=== PATIENT | male | born 1955 | race African-American/Black ===

== ENCOUNTER 2022-10-20 14:04 | Inpatient (IN) ==
[2022-10-20] MEDS ORDERED: ALBUTEROL 2.5 MG/3 ML NEB RESP TX PRN (15:58)
[2022-10-20] MEDS ORDERED: ONDANSETRON 4 MG/2 ML VIAL IV PRN (16:42)
[2022-10-20 16:48] LABS: Basophils % 0.1 % (0.0-0.8); Hematocrit 37.7 VOL% (42.0-52.0); Hemoglobin 11.4 GM/DL (14.0-18.0); Immature Granulocytes % 0.6 %; Immature Granulocytes Absolute 0.05 #; Lymphocytes # 0.9 10*3/uL (1.4-4.0); Lymphocytes % 10.3 % (21.2-54.2); Mean Corpuscular HGB Conc 30.2 GM/DL (32-36); Mean Corpuscular Volume 79.7 FL (87-102); Mean Platelet Volume 12.2 FL (9.6-12.0); Monocytes # 0.3 10*3/uL (0.11-0.8); Monocytes % 3.5 % (1.7-12.7); Neutrophils % 85.5 % (38.7-73.9); Platelet Count 279 T/CUMM (130-400); Red Blood Count 4.73 MC/CUMM (3.8-5.5); Red Cell Distribution Width 17.2 % (9.3-17.3); White Blood Count 8.39 T/CUMM (4-12)
[2022-10-20 17:04] LABS: Alanine Aminotransferase 116 U/L (16-61); Albumin 1.9 G/DL (3.4-5.0); Alkaline Phosphatase 79 U/L (45-117); Aspartate Amino Transferase 66 U/L (0-37); Bilirubin,Total < 0.39 MG/DL (0.20-1.00); Blood Urea Nitrogen 19 MG/DL (7-18); Calcium 8.4 MG/DL (8.5-10.1); Carbon Dioxide 29 MMOL/L (21-32); Chloride 107 MMOL/L (98-107); Glucose 146 MG/DL (74-106); Osmolality,Calculated 285.3 MOS/KG (273-304); Potassium 4.3 MMOL/L (3.5-5.1); Sodium 141 MMOL/L (136-145); Total Protein 6.3 G/DL (6.4-8.2)
[2022-10-20] MEDS: methylPREDNISolone SOD SUC 40 MG/1 ML VIAL IV SCH (18:42)
[2022-10-20] MEDS: PIPERACILLIN/TAZOBACTAM 3,375 MG in SODIUM CHLORIDE 0.9% 100 ML IV SCH (18:43)
[2022-10-20] MEDS: FAMOTIDINE 20 MG/2 ML VIAL IV SCH (18:44)
[2022-10-20] MEDS: INSULIN LISPRO 100 UNIT/ML SUBCUT SCH ×2 (18:57→23:16)
[2022-10-20] MEDS: ALBUTEROL/IPRATROPIUM 3 ML NEB RESP TX SCH (19:21)
[2022-10-20 20:11] LABS: Mucus,Urine Occasional /LPF (Occasional); RBC,Urine <1 /HPF (0-4)
[2022-10-20 20:12] LABS: Bilirubin,Urine Negative (Negative); Blood, Urine Negative (Negative); Glucose,Urine (UA) Negative (Negative); Ketones,Urine Negative (Negative); Nitrite,Urine Negative (Negative); Protein,Urine Negative (Negative); Urine Appearance Clear (Clear); Urine Color Yellow (Yellow); Urine Specific Gravity 1.015 (1.001-1.035); Urine Urobilinogen 0.2 eU/dL (<2.0)
[2022-10-21] MEDS: ALBUTEROL/IPRATROPIUM 3 ML NEB RESP TX SCH ×4 (00:05→18:58)
[2022-10-21] MEDS: PIPERACILLIN/TAZOBACTAM 3,375 MG in SODIUM CHLORIDE 0.9% 100 ML IV SCH ×2 (01:05→11:10)
[2022-10-21 03:33] LABS: Arterial Base Excess iSTAT 5 MMOL/L (-2.5-2.5); Arterial Bicarbonate iSTAT 29.5 MMOL/L (20-26); Arterial O2 Saturation iSTAT 98 % (95-100); Arterial PCO2 iSTAT 41 MM HG (35-48); Arterial PO2 iSTAT 101 MM HG (80-95); Arterial Total CO2 iSTAT 31 MMO/L (23-27); Arterial pH iSTAT 7.469 (7.35-7.45)
[2022-10-21] MEDS: methylPREDNISolone SOD SUC 40 MG/1 ML VIAL IV SCH ×2 (05:24→17:22)
[2022-10-21] MEDS: FAMOTIDINE 20 MG/2 ML VIAL IV SCH ×2 (05:26→17:24)
[2022-10-21] MEDS: INSULIN LISPRO 100 UNIT/ML SUBCUT SCH ×3 (05:30→18:38)
[2022-10-21] MEDS: LEVOTHYROXINE 25 MCG TABLET PO SCH (05:34)
[2022-10-21 06:17] LABS: Albumin 1.9 G/DL (3.4-5.0); Bilirubin,Total 0.4 MG/DL (0.20-1.00); Calcium 8.7 MG/DL (8.5-10.1); Osmolality,Calculated 279.5 MOS/KG (273-304); Total Protein 6.3 G/DL (6.4-8.2)
[2022-10-21 06:25] LABS: Basophils % 0.2 % (0.0-0.8); Eosinophils % 0.1 % (0.00-10.9); Hematocrit 34.5 VOL% (42.0-52.0); Hemoglobin 10.8 GM/DL (14.0-18.0); Immature Granulocytes % 0.3 %; Immature Granulocytes Absolute 0.03 #; Lymphocytes # 1.8 10*3/uL (1.4-4.0); Lymphocytes % 19.6 % (21.2-54.2); Mean Corpuscular HGB Conc 31.3 GM/DL (32-36); Mean Corpuscular Volume 76.7 FL (87-102); Mean Platelet Volume 11.9 FL (9.6-12.0); Monocytes # 0.5 10*3/uL (0.11-0.8); Monocytes % 5.8 % (1.7-12.7); Platelet Count 381 T/CUMM (130-400); White Blood Count 8.98 T/CUMM (4-12)
[2022-10-21] MEDS ORDERED: SODIUM CHLORIDE 0.9% 1,000 ML IV SCH (08:30)
[2022-10-21] MEDS ORDERED: ceFAZolin 1,000 MG VIAL IRRIG ONE (10:00)
[2022-10-21] MEDS: MULTIVITAMIN LIQUID (CENTRUM) 60 ML BOTTLE PO SCH (10:23)
[2022-10-21] MEDS: LORATADINE 10 MG TABLET PO SCH ×2 (10:23→14:35)
[2022-10-21] MEDS: THIAMINE 100 MG TABLET PO SCH (10:23)
[2022-10-21] MEDS ORDERED: HEPARIN/NACL 0.9% 2 UNITS/ML 1,000 UNIT/500 ML BAG IV ONE (12:24)
[2022-10-21] MEDS ORDERED: MIDAZOLAM 2 MG/2 ML VIAL ONE (14:17)
[2022-10-21] MEDS ORDERED: HEPARIN 10,000 UNIT/10 ML VIAL ONE (14:19)
[2022-10-21] MEDS: ALPRAZolam 0.5 MG TABLET PO PRN (14:35)
[2022-10-21] MEDS: MENTHOL/ZINC OXIDE OINT 71 GM JAR TOP SCH (18:39)
[2022-10-22] MEDS: MENTHOL/ZINC OXIDE OINT 71 GM JAR TOP SCH ×3 (01:05→21:15)
[2022-10-22] MEDS: ZINC OXIDE 16% PASTE 57 GM TUBE TOP SCH ×3 (01:05→21:15)
[2022-10-22] MEDS: ALBUTEROL/IPRATROPIUM 3 ML NEB RESP TX SCH ×4 (01:18→19:09)
[2022-10-22] MEDS: PIPERACILLIN/TAZOBACTAM 3,375 MG in SODIUM CHLORIDE 0.9% 100 ML IV SCH ×4 (02:26→21:14)
[2022-10-22] MEDS: INSULIN LISPRO 100 UNIT/ML SUBCUT SCH ×4 (02:41→17:41)
[2022-10-22] MEDS: ALPRAZolam 0.5 MG TABLET PO PRN ×2 (03:45→21:51)
[2022-10-22] MEDS: FAMOTIDINE 20 MG/2 ML VIAL IV SCH ×2 (04:04→17:20)
[2022-10-22] MEDS: methylPREDNISolone SOD SUC 40 MG/1 ML VIAL IV SCH ×2 (04:05→17:22)
[2022-10-22 04:51] LABS: Arterial Base Excess iSTAT 3 MMOL/L (-2.5-2.5); Arterial Bicarbonate iSTAT 27.1 MMOL/L (20-26); Arterial O2 Saturation iSTAT 98 % (95-100); Arterial PCO2 iSTAT 39 MM HG (35-48); Arterial PO2 iSTAT 96 MM HG (80-95); Arterial Total CO2 iSTAT 28 MMO/L (23-27); Arterial pH iSTAT 7.448 (7.35-7.45)
[2022-10-22 05:14] LABS: Calcium 8.3 MG/DL (8.5-10.1); Osmolality,Calculated 279.7 MOS/KG (273-304); Phosphorous 3.1 MG/DL (2.5-4.9); Potassium 4.1 MMOL/L (3.5-5.1)
[2022-10-22] MEDS: LEVOTHYROXINE 25 MCG TABLET PO SCH (07:04)
[2022-10-22] MEDS: LORATADINE 10 MG TABLET PO SCH (09:02)
[2022-10-22] MEDS: THIAMINE 100 MG TABLET PO SCH (09:02)
[2022-10-22] MEDS: MULTIVITAMIN LIQUID (CENTRUM) 60 ML BOTTLE PO SCH (09:02)
[2022-10-22] MEDS: ENOXAPARIN 30 MG/0.3 ML SYRINGE SUBCUT SCH (09:05)
[2022-10-23] MEDS: ALBUTEROL/IPRATROPIUM 3 ML NEB RESP TX SCH ×2 (01:08→06:48)
[2022-10-23] MEDS: INSULIN LISPRO 100 UNIT/ML SUBCUT SCH ×2 (01:08→06:30)
[2022-10-23] MEDS: FAMOTIDINE 20 MG/2 ML VIAL IV SCH (06:08)
[2022-10-23] MEDS: methylPREDNISolone SOD SUC 40 MG/1 ML VIAL IV SCH (06:08)
[2022-10-23] MEDS: PIPERACILLIN/TAZOBACTAM 3,375 MG in SODIUM CHLORIDE 0.9% 100 ML IV SCH (06:21)
[2022-10-23] MEDS: LEVOTHYROXINE 25 MCG TABLET PO SCH (06:21)
[2022-10-23] MEDS: MULTIVITAMIN LIQUID (CENTRUM) 60 ML BOTTLE PO SCH (08:00)
[2022-10-23] MEDS: MENTHOL/ZINC OXIDE OINT 71 GM JAR TOP SCH (08:00)
[2022-10-23] MEDS: ZINC OXIDE 16% PASTE 57 GM TUBE TOP SCH (08:00)
[2022-10-23] MEDS: THIAMINE 100 MG TABLET PO SCH (08:01)
[2022-10-23] MEDS: LORATADINE 10 MG TABLET PO SCH (08:01)
[2022-10-23] MEDS: ENOXAPARIN 30 MG/0.3 ML SYRINGE SUBCUT SCH (08:01)
[2022-10-23 09:34] VITALS: BP 89/59
== END 2022-10-23 09:24 | DRG 228 ==
LOC: N.ICU 15:37 → SUATTDRO 15:37
PROVIDERS: ADMIT Family Medicine; ATTEND Internal Medicine
PROC: CLMICRA (2022-10-21 11:15)